=== PATIENT | male | born 1980 | race Caucasian/White ===

== ENCOUNTER 2022-09-13 11:29 | Day surgery (SDC) | payer BC, OTHER ==
[2022-09-13] MEDS ORDERED: Ondansetron 4 MG/2 ML SDV ONE (11:42)
[2022-09-13] MEDS ORDERED: Midazolam 1 MG/ML 2 ML SDV ONE (11:42)
[2022-09-13] MEDS ORDERED: Propofol 200 MG/20 ML SDV ONE (11:42)
[2022-09-13] MEDS ORDERED: Rocuronium 50 MG/5 ML Vial ONE (11:42)
[2022-09-13] MEDS ORDERED: fentaNYL 250 MCG/5 ML SDV ONE (11:42)
[2022-09-13] MEDS ORDERED: Lidocaine 1% 5 ML VIAL ONE (11:42)
[2022-09-13] MEDS ORDERED: Sodium Chloride 0.9% 10 ML Syringe FLUSH PRN (11:46)
[2022-09-13] MEDS ORDERED: Lactated Ringers 1,000 ML IV SCH (12:00)
[2022-09-13] MEDS ORDERED: Lidocaine 1% 50 ML MDV ONE (12:14)
[2022-09-13] MEDS ORDERED: Bupivacaine 0.5%/EPINEPHrine 1:200,000 50 ML MDV ONE (12:15)
[2022-09-13] MEDS ORDERED: cefTRIAXone 2 GM in Sodium Chloride 0.9% 100 ML IV ONE (12:15)
[2022-09-13] MEDS ORDERED: metroNIDAZOLE/Normal Saline 500 MG in Premix Bag 1 BAG IV ONE (12:30)
[2022-09-13] MEDS ORDERED: Dexamethasone 4 MG/ML 5 ML MDV ONE (12:32)
[2022-09-13] MEDS ORDERED: HYDROmorphone 0.5 MG/0.5 ML Syringe ONE (12:36)
[2022-09-13] MEDS ORDERED: Lactated Ringers 1,000 ML ONE (12:52)
[2022-09-13] MEDS ORDERED: Neostigmine Methylsulfate 10 MG/10 ML MDV ONE (13:01)
[2022-09-13] MEDS ORDERED: Ketorolac 30 MG/ML SDV ONE (13:02)
[2022-09-13] MEDS ORDERED: Ondansetron 4 MG/2 ML SDV IVPUSH PRN (13:46)
[2022-09-13] MEDS ORDERED: HYDROmorphone 0.5 MG/0.5 ML Syringe IVPUSH PRN (13:46)
[2022-09-13] MEDS ORDERED: fentaNYL 100 MCG/2 ML SDV IVPUSH PRN (13:46)
[2022-09-13] MEDS ORDERED: Acetaminophen/HYDROcodone 325-5 MG Tab PO PRN (14:31)
[2022-09-13 16:49] VITALS: BP 138/78; PULSE 70
[2022-09-13] MEDS ORDERED: Sodium Chloride 0.9% 10 ML Syringe FLUSH SCH (21:00)
== END 2022-09-13 15:55 | disposition home or self-care (01) ==
LOC: JD.SDS 11:29
PROVIDERS: ATTEND Surgery
DX: K35.80 Unspecified acute appendicitis (principal); Z79.899 Other long term (current) drug therapy; Z79.2 Long term (current) use of antibiotics
CPT/HCPCS: 44970; A9270; J1100; J1170; J1885; J2001; J2250; J2405; J2704; J2710; J3010; J3490; J7120; 00840; 99140